=== PATIENT | female | born 1980 | race Caucasian/White ===

== ENCOUNTER 2017-10-18 12:34 | Emergency (ER) | payer MEDICAID ==
[2017-10-18] MEDS ORDERED: ACETAMINOPHEN 325 MG TABLET PO STA (12:52)
[2017-10-18] MEDS ORDERED: SODIUM CHLORIDE 0.9% 1,000 ML IV ONE (12:52)
--- NOTE | 2017-10-18 12:55 | ED Physician Documentation ---
PD HPI ABD PAIN - Stated complaint Stated Complaint: AB PX/ BACK PX/ 13 WKS PREG - Chief complaint Chief Complaint: Abd Pain - History obtained from History obtained from: Patient - History of Present Illness Timing - onset: Today Timing - duration: Days (1) Timing - details: Gradual onset Pain level max: 8 Pain level now: 8 Quality: Aching, Pain Location: RLQ Radiation: Other (lower R back) Improved by: Laying still Worsened by: Moving, Position (lying flat), Palpation Associated symptoms: Nausea, Vomiting. No: Fever, Hematemesis, Diarrhea, Constipation, Melena, Hematochezia, Dysuria, Hematuria, Vaginal bleeding, Vaginal dc Similar symptoms before: Has not had sx before Recently seen: Not recently seen - Additional information Additional information: , 13 weeks Review of Systems Ten Systems: 10 systems reviewed and negative Constitutional: denies: Fever, Chills Ears: denies: Ear pain Nose: denies: Rhinorrhea / runny nose, Congestion Throat: denies: Sore throat Cardiac: denies: Chest pain / pressure Respiratory: denies: Cough, Wheezing GI: denies: Hematemesis, Bloody / black stool : denies: Dysuria, Frequency, Hesitancy Skin: denies: Rash Musculoskeletal: denies: Neck pain, Back pain Neurologic: denies: Headache PD PAST MEDICAL HISTORY - Past Medical History Past Medical History: Yes : Kidney stones - Past Surgical History Past Surgical History: Yes General: Cholecystectomy - Present Medications Home Medications: Ambulatory Orders Medication Instructions Recorded Confirmed Albuterol 2.5 mg INH Q4H PRN 10/18/17 10/18/17 Dextroamphetamine/Amphetamine 10/18/17 [Adderall 10 mg Tablet] Famotidine [Pepcid] 20 mg PO BID #60 tablet 10/18/17 buPROPion [Wellbutrin Sr] 10/18/17 - Allergies Allergies/Adverse Reactions: Allergies Allergy/AdvReac Type Severity Reaction Status Date / Time promethazine [From Phenergan] Allergy Unknown Verified 10/18/17 12:40 Sulfa (Sulfonamide Allergy Unknown Verified 10/18/17 12:40 Antibiotics) - Living Situation Living Situation: reports: With family Living Arrangement: reports: At home - Social History Does the pt have substance abuse?: No - Family History Family history: reports: Non contributory PD ED PE NORMAL - Vitals Vital signs reviewed: Yes - General General: Alert and oriented X 3, No acute distress, Well developed/nourished - HEENT HEENT: Moist mucous membranes, Pharynx benign - Neck Neck: Supple, no meningeal sign - Cardiac Cardiac: RRR, Strong equal pulses - Respiratory Respiratory: No respiratory distress, Clear bilaterally - Abdomen Abdomen: Soft, Other (TTP RLQ at McBurney's point. + rovsing, obturator and psoas signs. ) - Back Back: No CVA TTP, No spinal TTP - Derm Derm: Warm and dry, No rash - Extremities Extremities: No edema, No calf tenderness / cord - Neuro Neuro: Alert and oriented X 3 - Psych Psych: Normal mood, Normal affect Results - Vitals Vitals: Vital Signs - 24 hr 10/18/17 10/18/17 12:37 15:43 Temperature 36.3 C L 36.6 C Heart Rate 96 90 Respiratory 16 15 Rate Blood Pressure 108/80 105/75 O2 Saturation 99 100 Oxygen O2 Source Room air - Labs Labs: Laboratory Tests 10/18/17 10/18/17 10/18/17 12:45 13:00 13:00 WBC 8.3 RBC 4.62 Hgb 14.3 Hct 42.0 MCV 91.0 MCH 31.0 MCHC 34.0 RDW 14.1 Plt Count 212 MPV 8.3 Neut # 6.4 Lymph # 1.1 L Barnes # 0.5 Eos # 0.3 Baso # 0.0 Absolute Nucleated RBC 0.00 Nucleated RBC % 0.0 Sodium 136 Potassium 3.7 Chloride 102 Carbon Dioxide 27 Anion Gap 7.0 BUN 9 Creatinine 0.5 Estimated GFR (MDRD) 141 Glucose 90 Calcium 9.3 Total Bilirubin 0.6 AST 31 ALT 40 Alkaline Phosphatase 53 Total Protein 8.1 Albumin 4.0 Globulin 4.1 Albumin/Globulin Ratio 1.0 Lipase 24 Urine Color YELLOW Urine Clarity CLOUDY Urine pH 7.5 Ur Specific [place] 1.020 Urine Protein NEGATIVE Urine Glucose (UA) NEGATIVE Urine Ketones NEGATIVE Urine Occult Blood NEGATIVE Urine Nitrite NEGATIVE Urine Bilirubin NEGATIVE Urine Urobilinogen 0.2 (NORMAL) Ur Leukocyte Esterase NEGATIVE Urine RBC None Seen Urine WBC 0-3 Ur Squamous Epith Cells MOD Squamous H Amorphous Sediment Marked Urine Bacteria None Seen Ur Microscopic Review INDICATED Urine Culture Comments NOT INDICATED - Rads (name of study) RLQ abd US Radiology: Prelim report reviewed, EMP read contemporaneously, See rad report ( The appendix is not seen, although there are no secondary signs of acute appendicitis. Low likelihood for appendicitis. Normal appearance of the right ovary. ) PD MEDICAL DECISION MAKING - ED course Complexity details: reviewed results, re-evaluated patient, considered differential, d/w patient ED course: Bedside US with IUP and FHR of 154bpm. + FM. Patient is a 36-year-old female who presents to the emergency department with abdominal pain today. During the emergency department visit the pain moved to the epigastrium and resolved with a GI cocktail. Abdomen is soft, nontender nondistended on serial examination. Normal white blood cell count. Tolerating p.o. without difficulty. Will trial on an H2 yesica and see how she progresses. She will return if she worsens. She is well-appearing, nontoxic. Afebrile. Patient counseled regarding signs and symptoms for which I believe and urgent re-evaluation would be necessary. Patient with good understanding of and agreement to plan and is comfortable going home at this time This document was made in part using voice recognition software. While efforts are made to proofread this document, sound alike and grammatical errors may occur. Departure - Departure Disposition: 01 Home, Self Care Clinical Impression: Abdominal pain Qualifiers: Abdominal location: epigastric Qualified Code(s): R10.13 - Epigastric pain Gastritis Qualifiers: Gastritis type: unspecified gastritis Chronicity: acute Gastritis bleeding: without bleeding Qualified Code(s): K29.00 - Acute gastritis without bleeding Condition: Good Instructions: ED Gastritis Follow-Up: Provider,Other [Primary Care Provider] - Within 3 Days Prescriptions: Famotidine [Pepcid] 20 mg PO BID #60 tablet Comments: Return if you worsen. This should improve over the next 24-48 hours. Return if you develop worsening pain, fevers, or new or worsening symptoms. Discharge Date/Time: 10/18/17 15:30
[2017-10-18 13:06] LABS: BASOPHILS % (AUTO) 0.6 %; EOSINOPHILS # (AUTO) 0.3 10^3/uL (0.0-0.7); EOSINOPHILS % (AUTO) 3.9 %; HGB - HEMOGLOBIN 14.3 g/dL (12.0-16.0); LYMPHOCYTES # (AUTO) 1.1 10^3/uL (1.5-3.5); LYMPHOCYTES % (AUTO) 13.4 %; MEAN PLATELET VOLUME 8.3 fL (7.9-10.8); MONOCYTES # (AUTO) 0.5 10^3/uL (0.0-1.0); MONOCYTES % (AUTO) 5.6 %; NEUTROPHILS # (AUTO) 6.4 10^3/uL (1.5-6.6); NEUTROPHILS % (AUTO) 76.5 %; PLT - PLATELET COUNT 212 10^3/uL (130-450); RED BLOOD COUNT 4.62 10^6/uL (4.20-5.40); RED CELL DISTRIBUTION WIDTH 14.1 % (12.0-15.0); WHITE BLOOD COUNT 8.3 x10^3/uL (4.8-10.8)
[2017-10-18 13:11] LABS: BILIRUBIN,URINE NEGATIVE (NEGATIVE); GLUCOSE, URINE (UA) NEGATIVE (NEGATIVE); KETONES,URINE (UA) NEGATIVE (NEGATIVE); LEUKOCYTE ESTERASE, URINE NEGATIVE (NEGATIVE); NITRITE,URINE NEGATIVE (NEGATIVE); OCCULT BLOOD,URINE NEGATIVE (NEGATIVE); PH,URINE 7.5 PH (5.0-7.5); PROTEIN,URINE NEGATIVE (NEGATIVE); UROBILINOGEN,URINE 0.2 (NORMAL) E.U./dL (NORMAL)
[2017-10-18 13:12] LABS: CLARITY,URINE CLOUDY (CLEAR)
[2017-10-18 13:20] LABS: BILIRUBIN,TOTAL 0.6 mg/dL (0.2-1.0); CALCIUM 9.3 mg/dL (8.5-10.3); CREATININE 0.5 mg/dL (0.4-1.0); TOTAL PROTEIN 8.1 g/dL (6.7-8.2)
[2017-10-18 13:21] LABS: AMORPHOUS SEDIMENT,UR Marked /LPF; BACTERIA,URINE None Seen /HPF (None Seen); RBC,URINE None Seen /HPF (0-5); SQUAMOUS EPITHELIAL CELL,UR MOD Squamous (<= Few)
--- NOTE | 2017-10-18 13:58 | Ultrasound Preliminary Report ---
Exam: US ABDOMEN LIMITED IMPRESSION: 1. The appendix is not seen, although there are no secondary signs of acute appendicitis. Low likelih ood for appendicitis. 2. Normal appearance of the right ovary. [facility] SITE ID: [id number]
--- NOTE | 2017-10-18 13:58 | Ultrasound Report ---
EXAM: Limited ABDOMEN ultrasound EXAM DATE: 10/18/2017 01:06 PM. CLINICAL HISTORY: RLQ abd pain, poss appendicitis. . COMPARISON: None. TECHNIQUE: Real-time scanning was performed of the right lower quadrant with static images obtained. FINDINGS: APPENDIX: The appendix is not seen. COMPRESSION TOLERATED: Marked ASSOCIATED FINDINGS: Lymph Nodes Seen: No Free Fluid/Complex Fluid Seen: None Thickened Bowel Wall Seen: None Size: mm (abnormal >3 mm) Other: The right ovary appears normal by ultrasound measuring 3 x 1.9 x 1.9 cm. Flow is seen in the r ight ovary and Doppler. Intrauterine fetus demonstrates cardiac activity with heart rate 161 bpm. IMPRESSION: 1. The appendix is not seen, although there are no secondary signs of acute appendicitis. Low likelih ood for appendicitis. 2. Normal appearance of the right ovary. [facility] Referring Provider Line: [phone] SITE ID: [id number]
[2017-10-18] MEDS ORDERED: LIDOCAINE VISCOUS 2% 15 ML UDC MM STA (14:03)
[2017-10-18] MEDS ORDERED: MAG HYDROX/AL HYDROX/SIMETH 30 ML UDC PO STA (14:03)
[2017-10-18] MEDS ORDERED: SUCRALFATE 1 GM/10 ML UDC PO STA (14:03)
[2017-10-18] MEDS ORDERED: FAMOTIDINE 20 MG TABLET PO STA (14:05)
[2017-10-18 15:44] VITALS: BP 105/75
== END 2017-10-18 15:30 | disposition home or self-care (01) ==
LOC: ED 12:34
DX: O99.611 Diseases of the digestive system complicating pregnancy, first trimester (principal); K29.00 Acute gastritis without bleeding; Z3A.13 13 weeks gestation of pregnancy
CPT/HCPCS: 36415; 76705; 80053; 81001; 83690; 85025; 96360; 96361; 99283; 99284; A9270; 81003; 87086

== ENCOUNTER 2018-02-11 21:25 | Outpatient (CLI) | payer MEDICAID ==
[2018-02-11] MEDS ORDERED: SODIUM CHLORIDE FLUSH 0.9% 10 ML SYRINGE ONE (21:49)
[2018-02-11] MEDS ORDERED: LACTATED RINGERS 1,000 ML IV ONE (21:49)
[2018-02-11 21:58] LABS: BILIRUBIN,URINE NEGATIVE (NEGATIVE); GLUCOSE, URINE (UA) NEGATIVE (NEGATIVE); KETONES,URINE (UA) NEGATIVE (NEGATIVE); LEUKOCYTE ESTERASE, URINE NEGATIVE (NEGATIVE); NITRITE,URINE NEGATIVE (NEGATIVE); OCCULT BLOOD,URINE TRACE-LYSE (NEGATIVE); PH,URINE 6.5 PH (5.0-7.5); PROTEIN,URINE NEGATIVE (NEGATIVE); UROBILINOGEN,URINE 0.2 (NORMAL) E.U./dL (NORMAL)
[2018-02-11] MEDS ORDERED: LACTATED RINGERS 1,000 ML IV SCH (22:00)
[2018-02-11 22:04] LABS: CLARITY,URINE CLEAR (CLEAR)
[2018-02-11 22:31] LABS: BASOPHILS % (AUTO) 0.5 %; EOSINOPHILS # (AUTO) 0.4 10^3/uL (0.0-0.7); EOSINOPHILS % (AUTO) 4.7 %; HGB - HEMOGLOBIN 11.5 g/dL (12.0-16.0); LYMPHOCYTES # (AUTO) 1.3 10^3/uL (1.5-3.5); LYMPHOCYTES % (AUTO) 16.7 %; MEAN CORPUSCULAR HEMOGLOBIN 32.4 pg (27.0-31.0); MEAN CORPUSCULAR HGB CONC 34.7 g/dL (32.0-36.0); MEAN CORPUSCULAR VOLUME 93.3 fL (81.0-99.0); MEAN PLATELET VOLUME 9.1 fL (7.9-10.8); MONOCYTES # (AUTO) 0.5 10^3/uL (0.0-1.0); MONOCYTES % (AUTO) 6.7 %; NEUTROPHILS # (AUTO) 5.7 10^3/uL (1.5-6.6); NEUTROPHILS % (AUTO) 71.4 %; PLT - PLATELET COUNT 189 10^3/uL (130-450); RED BLOOD COUNT 3.56 10^6/uL (4.20-5.40); RED CELL DISTRIBUTION WIDTH 13.9 % (12.0-15.0)
[2018-02-12 00:10] VITALS: BP 102/68
== END 2018-02-11 23:38 | disposition home or self-care (01) ==
LOC: WFO 21:25 → FBP 21:27 → WFO 23:38
PROVIDERS: ATTEND Obstetrics & Gynecology
DX: O99.89 Other specified diseases and conditions complicating pregnancy, childbirth and the puerperium (principal); N89.8 Other specified noninflammatory disorders of vagina; M54.9 Dorsalgia, unspecified; Z3A.29 29 weeks gestation of pregnancy
CPT/HCPCS: 81003; 82731; 85025; J7120; 81001; 86850; 86900; 86901; 99213